=== PATIENT | female | born 1980 | race Two or more races ===

== ENCOUNTER 2017-08-12 18:35 | Emergency (ER) | payer SELFPAY ==
[~2017-08-12] VITALS: Ht 144.8 cm; Wt 82.1 kg
[2017-08-12 18:49] VITALS: BP 169/97
[2017-08-12] MEDS ORDERED: HYDROcodone-ACET 10/325MG TAB PO ONE (22:00)
[2017-08-12] MEDS ORDERED: DEXAMETHASONE SOD PHOS 10MG/1ML VIAL INJ IM ONE (22:00)
== END 2017-08-12 22:45 | disposition home or self-care (01) ==
LOC: ER 18:35
DX: J40 Bronchitis, not specified as acute or chronic (principal)
CPT/HCPCS: 96372; 99283; J1100

== ENCOUNTER 2017-11-07 11:32 | Inpatient (IN) | payer SELFPAY ==
[~2017-11-07] VITALS: Ht 144.8 cm; Wt 91.1 kg
[2017-11-07] MEDS ORDERED: ACETAMINOPHEN 325 MG TAB PO ONE (12:00)
[2017-11-07 12:21] LABS: Basophils # (auto) 0.1 uL; Eosinophils # (auto) 0 uL; Hemoglobin 12.2 g/dL (12.2-16.2); Lymphocytes # (auto) 2.7 uL; Lymphocytes % (auto) 12.6 % (10.0-50.0); Red Cell Distribution Width 15.5 % (11.8-14.3)
[2017-11-07 12:22] LABS: Basophils % (auto) 0.4 % (0.0-2.0); Hematocrit 37.6 % (36.0-46.0); Mean Corpuscular Hemoglobin 27.4 pg (28.0-32.0); Mean Corpuscular Hgb Conc. 32.6 g/dL (32.0-36.0); Mean Corpuscular Volume 84.2 fL (80.0-100.0); Monocytes # (auto) 1.6 uL; Monocytes % (auto) 7.2 % (0.0-12.0); Neutrophils # (auto) 17.3 uL; Neutrophils % (auto) 79.8 % (37.0-80.0); Platelet Count (auto) 378 10^3/uL (140-450); Red Blood Cells 4.46 10^6/uL (4.0-5.20); White Blood Cell 21.7 10^3/uL (4.4-10.8)
[2017-11-07] MEDS ORDERED: SODIUM CHLORIDE 0.9% 1,000 ML IVB ONE (12:34)
[2017-11-07 12:42] LABS: Albumin 3.6 g/dL (3.4-5.0); BUN/Creatinine Ratio 9.8; Bilirubin, Total 0.9 mg/dL (0.2-1.0); Calcium 8.7 mg/dL (8.5-10.1); Potassium 3.4 mmol/L (3.5-5.1); Total Protein 8.6 g/dL (6.4-8.2)
[2017-11-07] MEDS ORDERED: ONDANSETRON HCL 4 MG/2 ML VIAL IV ONE (12:45)
[2017-11-07] MEDS ORDERED: KETOROLAC TROMETH 30 MG/ML 1ML VIAL IV ONE (12:45)
[2017-11-07] MEDS ORDERED: LEVOFLOXACIN 500MG 100 ML IV ONE (12:45)
[2017-11-07 13:39] LABS: Urine Bacteria NONE SEEN /hpf (None Seen); Urine Blood 1+ /uL (Negative); Urine Specific Gravity 1.013 (1.001-1.035); Urine WBC 244 /hpf (0 - 5)
[2017-11-07 13:45] LABS: Magnesium 2.3 mg/dL (1.6-2.6)
[2017-11-07] MEDS: SODIUM CHLORIDE 0.9% 1,000 ML IV SCH ×2 (14:55→22:20)
[2017-11-07] MEDS ORDERED: SODIUM CHLORIDE 0.9% 2,000 ML IV ONE (15:00)
[2017-11-07] MEDS ORDERED: VANCOMYCIN PER PHARMACY 0 MG IV SCH (15:00)
[2017-11-07] MEDS ORDERED: NALBUPHINE HCL 10 MG/1ml INJECTION IV PRN (15:00)
[2017-11-07] MEDS ORDERED: NITROGLYCERIN 0.4 MG SL TAB SL PRN (15:00)
[2017-11-07] MEDS ORDERED: cefTRIAXone 1GM/10ml IVPUSH 10 ML IV ONE (15:00)
[2017-11-07] MEDS ORDERED: MORPHINE SULF(PF) 0.5MG/ML 10ML VIAL IV PRN (15:00)
[2017-11-07] MEDS ORDERED: TEMAZEPAM 15 MG CAP PO PRN (15:00)
[2017-11-07] MEDS ORDERED: DOCUSATE SOD 100 MG CAP PO PRN (15:00)
[2017-11-07] MEDS ORDERED: POTASSIUM CHL 10 Meq TABLET PO ONE (15:00)
[2017-11-07 18:33] VITALS: BP 112/67
[2017-11-07] MEDS: ONDANSETRON HCL 4 MG/2 ML VIAL IV PRN (20:37)
[2017-11-07 22:00] VITALS: BP 131/74
[2017-11-07] MEDS: VANCOMYCIN 1GM/250ML 250 ML IV SCH (22:20)
[2017-11-08] MEDS: ONDANSETRON HCL 4 MG/2 ML VIAL IV PRN ×4 (03:31→19:45)
[2017-11-08] MEDS: ACETAMINOPHEN 325 MG TAB PO PRN ×2 (03:32→10:17)
[2017-11-08 05:00] VITALS: BP 146/75
[2017-11-08 06:20] LABS: Potassium 3.1 mmol/L (3.5-5.1)
[2017-11-08 06:23] LABS: Basophils # (auto) 0 uL; Basophils % (auto) 0.2 % (0.0-2.0); Eosinophils # (auto) 0 uL; Eosinophils % (auto) 0.1 % (0.0-7.0); Hematocrit 31.3 % (36.0-46.0); Hemoglobin 10.4 g/dL (12.2-16.2); Lymphocytes # (auto) 1.8 uL; Lymphocytes % (auto) 13.1 % (10.0-50.0); Mean Corpuscular Hemoglobin 27.8 pg (28.0-32.0); Mean Corpuscular Hgb Conc. 33.4 g/dL (32.0-36.0); Mean Corpuscular Volume 83.1 fL (80.0-100.0); Monocytes # (auto) 1.1 uL; Monocytes % (auto) 7.7 % (0.0-12.0); Neutrophils # (auto) 10.9 uL; Neutrophils % (auto) 78.9 % (37.0-80.0); Platelet Count (auto) 304 10^3/uL (140-450); Red Blood Cells 3.76 10^6/uL (4.0-5.20); Red Cell Distribution Width 15.2 % (11.8-14.3); White Blood Cell 13.9 10^3/uL (4.4-10.8)
[2017-11-08 06:32] LABS: Albumin 2.8 g/dL (3.4-5.0); BUN/Creatinine Ratio 11.8; Bilirubin, Total 0.5 mg/dL (0.2-1.0); Total Protein 6.9 g/dL (6.4-8.2)
[2017-11-08 09:00] VITALS: BP 115/67
[2017-11-08] MEDS: cefTRIAXone 1GM/10ml IVPUSH 10 ML IV SCH (10:16)
[2017-11-08] MEDS: VANCOMYCIN 1GM/250ML 250 ML IV SCH (10:16)
[2017-11-08] MEDS: SODIUM CHLORIDE 0.9% 1,000 ML IV SCH ×3 (10:16→23:47)
[2017-11-08] MEDS: MULTIPLE VITAMIN TAB PO SCH (10:17)
[2017-11-08 13:00] VITALS: BP 130/72
[2017-11-08] MEDS ORDERED: POTASSIUM CHL 20 Meq TABLET PO ONE (13:45)
[2017-11-08 17:00] VITALS: BP 144/80
[2017-11-08] MEDS: HYDROcodone-ACET 5/325MG TAB PO PRN (20:59)
[2017-11-09 05:53] VITALS: BP 137/74
[2017-11-09 05:54] LABS: Basophils # (auto) 0 uL; Basophils % (auto) 0.4 % (0.0-2.0); Eosinophils # (auto) 0 uL; Eosinophils % (auto) 0.4 % (0.0-7.0); Hematocrit 31.1 % (36.0-46.0); Hemoglobin 10.4 g/dL (12.2-16.2); Lymphocytes # (auto) 2.4 uL; Lymphocytes % (auto) 28.3 % (10.0-50.0); Mean Corpuscular Hemoglobin 28.4 pg (28.0-32.0); Mean Corpuscular Hgb Conc. 33.6 g/dL (32.0-36.0); Mean Corpuscular Volume 84.4 fL (80.0-100.0); Monocytes # (auto) 0.7 uL; Monocytes % (auto) 8.5 % (0.0-12.0); Neutrophils # (auto) 5.4 uL; Neutrophils % (auto) 62.4 % (37.0-80.0); Nucleated Red Blood Cells % 0.1 %; Platelet Count (auto) 298 10^3/uL (140-450); Red Blood Cells 3.68 10^6/uL (4.0-5.20); Red Cell Distribution Width 15.3 % (11.8-14.3); White Blood Cell 8.6 10^3/uL (4.4-10.8)
[2017-11-09 06:06] LABS: BUN/Creatinine Ratio 8.3; Calcium 7.8 mg/dL (8.5-10.1); Potassium 3.5 mmol/L (3.5-5.1)
[2017-11-09 09:00] VITALS: BP 125/74
[2017-11-09] MEDS: ONDANSETRON HCL 4 MG/2 ML VIAL IV PRN (09:50)
[2017-11-09] MEDS: cefTRIAXone 1GM/10ml IVPUSH 10 ML IV SCH (09:50)
[2017-11-09] MEDS: MULTIPLE VITAMIN TAB PO SCH (09:50)
[2017-11-09] MEDS: HYDROcodone-ACET 5/325MG TAB PO PRN ×2 (09:50→18:34)
[2017-11-09] MEDS: SODIUM CHLORIDE 0.9% 1,000 ML IV SCH ×2 (10:06→18:21)
[2017-11-09] MEDS ORDERED: PROMETHAZINE HCL 25 MG/ML 1ML IV PRN (10:30)
[2017-11-09 13:00] VITALS: BP 138/66
[2017-11-09] MEDS ORDERED: LEVO500T21 PO (14:04)
[2017-11-09 17:00] VITALS: BP 140/70
== END 2017-11-09 20:15 | disposition home or self-care (01) | DRG 872 ==
LOC: ER 11:32 → TELE 11:33 → TELE-WESTW 17:25
PROVIDERS: ADMIT Internal Medicine; ATTEND Internal Medicine
DX: A41.51 Sepsis due to Escherichia coli [E. coli] (principal); E87.1 Hypo-osmolality and hyponatremia; N13.6 Pyonephrosis; Z68.41 Body mass index [BMI] 40.0-44.9, adult; E66.9 Obesity, unspecified; I12.9 Hypertensive chronic kidney disease with stage 1 through stage 4 chronic kidney disease, or unspecified chronic kidney disease; E87.6 Hypokalemia; E86.0 Dehydration; K76.0 Fatty (change of) liver, not elsewhere classified; N18.2 Chronic kidney disease, stage 2 (mild); N23 Unspecified renal colic; Z79.899 Other long term (current) drug therapy; Z87.440 Personal history of urinary (tract) infections; Z98.51 Tubal ligation status
CPT/HCPCS: 36415; 74176; 76775; 80048; 80053; 80061; 80202; 81001; 81025; 83605; 83690; 83735; 85025; 87040; 87086; 87088; 87186; 94761; 96374; 96375; J1885; J2405

== ENCOUNTER 2022-05-15 08:57 | Emergency (ER) | payer MEDICAID ==
[~2022-05-15] VITALS: Ht 149.9 cm; Wt 94.0 kg
[~2022-05-15 08:57] MED LIST: LEVO500T31 PO
[2022-05-15 09:41] VITALS: BP 150/84
[2022-05-15] MEDS ORDERED: ACETAMINOPHEN 325 MG TAB PO ONE (10:15)
== END 2022-05-15 10:29 | disposition home or self-care (01) ==
LOC: ER 08:57
DX: S01.01XA Laceration without foreign body of scalp, initial encounter (principal); I10 Essential (primary) hypertension; F12.10 Cannabis abuse, uncomplicated; Z98.51 Tubal ligation status; W18.00XA Striking against unspecified object with subsequent fall, initial encounter; Y93.89 Activity, other specified; Y92.89 Other specified places as the place of occurrence of the external cause; Y99.8 Other external cause status
CPT/HCPCS: 12001; 70450